=== PATIENT | male | born 1970 | race Caucasian/White ===

== ENCOUNTER 2016-09-14 01:38 | Emergency (ER) | payer OTHER ==
--- NOTE | ~2016-09-14 | EKG ---
PATIENT: ELANA SEAY UNIT #: [id number] Ventricular Rate: 100 BPM Atrial Rate: 100 BPM P-R Interval: 152 ms QRS Duration: 100 ms Q-T Interval: 358 ms QTC Calculation(Bezet): 461 ms P [place]: 53 degrees Calculated R [place]: 70 degrees Calculated T [place]: 42 degrees Diagnosis Line: Normal sinus rhythm Diagnosis Line: Normal ECG Diagnosis Line: No previous ECGs available Diagnosis Line: Confirmed by OSCAR MARTINEZ MD ([id number]) on 09/15/2016 Diagnosis Line: 4:35:14 PM INTERPRETING MD: JUAN LANDIS
[~2016-09-14 01:38] MED LIST: AMOXICILLIN PO; FLEXERIL PO; LORTAB 10-5001 EACH PO; MOBIC PO; NO MEDICATIONS; PERCOCET 5/321 UDTAB PO
[2016-09-14 03:36] LABS: ALBUMIN SERUM 3.9 g/dL (3.5-5.0); ALKALINE PHOSPHATASE 67 U/L (32-92); ALT (SGPT) 36 U/L (10-40); AST (SGOT) 55 U/L (10-42); BILIRUBIN,TOTAL 0.4 mg/dL (0.2-2.0); BLOOD UREA NITROGEN 15 mg/dL (9-23); BUN/CREATININE RATIO 16.66; CALCIUM SERUM 8.2 mg/dL (8.4-10.2); CARBON DIOXIDE 21 mmol/L (22-31); CHLORIDE 102 mmol/L (100-111); CREATININE SERUM 0.9 mg/dL (0.6-1.4); GLOM FILT RATE Estimated 103.5 mL/min (>60); GLUCOSE FASTING 104 mg/dL (70-110); SALICYLATE <4.0 mg/dL; SODIUM 134 mmol/L (135-145)
[2016-09-14 03:40] LABS: ACETAMINOPHEN <10 ug/mL; ALCOHOL BLOOD 181 mg/dL (0); BILIRUBIN, DIRECT <0.1 mg/dL (0.0-0.2); BILIRUBIN,INDIRECT 0.3 mg/dL (0.0-0.9)
== END 2016-09-14 03:06 | disposition left against medical advice (07) ==
LOC: CED 01:38
PROVIDERS: Emergency Medicine
DX: T40.1X1A Poisoning by heroin, accidental (unintentional), initial encounter (principal); F10.129 Alcohol abuse with intoxication, unspecified; F17.200 Nicotine dependence, unspecified, uncomplicated; Z88.5 Allergy status to narcotic agent
CPT/HCPCS: 36415; 80048; 80076; 93005; 96360; 99284; G0480